=== PATIENT | female | born 1955 | race Caucasian/White ===

== ENCOUNTER 2019-06-11 21:03 | Emergency (ER) | payer OTHER ==
--- NOTE | 2019-06-11 21:42 | ED.PDOC ---
History of Present Illness - General Chief Complaint: Laceration Stated Complaint: left ring finger laceration Time Seen by Provider: 06/11/19 21:41 Source: patient Exam Limitations: no limitations - History of Present Illness Initial Comments: Disha Todd 63 y/o female stated cut her left ring fingertip while cutting onions at home cooking fajita.Had noted bleeding for several hours tried using pressure but unable to control bleeding. Timing/Duration: just prior to arrival Severity: mild Location: hands - left ring finger Improving Factors: rest Worsening Factors: movement Associated Symptoms: denies symptoms Allergies/Adverse Reactions: Allergies NO KNOWN ALLERGY Allergy (Verified 06/11/19 21:47) Review of Systems - Review of Systems Neurological: States: see HPI Past Medical History (General) - Patient Medical History Hx Other PMH: Yes - Rheumatoid Arhtritis - Vaccination History Immunizations Up to Date: Yes - Tdap Family Medical History - Family History Mother Family History: Unknown Physical Exam - Physical Exam General Appearance: Alert, Comfortable, No apparent distress Eyes, Ears, Nose, Throat Exam: normal ENT inspection Neck: normal inspection Cardiovascular/Chest: normal peripheral pulses, regular rate, rhythm, no murmur Respiratory: lungs clear, normal breath sounds Gastrointestinal/Abdominal: non tender, soft Extremity: other - finger deformities from RA Neurologic: alert, oriented x 3 Skin Exam: warm/dry, normal color Skin Problem Location: upper extremities - left ring finger;no active bleeding noted Skin Character: other - skin laceration Progress - Progress Progress: 06/11/19 21:58 Wound care done-cleanse with betadine ,applied Neosporin and covered with sterile dressing Departure - Departure Clinical Impression: Minor skin laceration Time of Disposition: 21:54 Disposition: Discharge to Home or Self Care Condition: Fair Departure Forms: ED Discharge - Pt. Copy, Patient Portal Self Enrollment Instructions: DI for Wound Infection, Wound Care (DC) Additional Instructions: Remove wound dressing 14 June 2019 unless it gets wet and dirty need to change dressing;Keep wound dry for 10-14 days
[2019-06-11] MEDS ORDERED: NEOMYCIN-BACITRACIN-POLYMYXIN 0.9 GM UD TOP ONE (21:46)
[2019-06-12 03:52] VITALS: BP 132/70; TEMP 98; O2SAT 100
== END 2019-06-11 22:05 | disposition home or self-care (01) ==
LOC: ER 21:03
DX: S61.215A Laceration without foreign body of left ring finger without damage to nail, initial encounter (principal); M06.9 Rheumatoid arthritis, unspecified; W26.0XXA Contact with knife, initial encounter; Y93.G1 Activity, food preparation and clean up; Y92.009 Unspecified place in unspecified non-institutional (private) residence as the place of occurrence of the external cause